=== PATIENT | male | born 1990 | race Asian ===

== ENCOUNTER → 2019-06-17 | Outpatient (CLI) | payer BC ==
[2019-06-17 08:18] LABS: SPERM MORPHOLOGY SENT TO REFERENC LAB
[2019-06-17 09:20] LABS: SPERM CONCENTRATION 56.7 X10^6/mL (>12.0); TOTAL SPERM COUNT 124.7 X10^6 (>33.0)
[2019-06-17 09:21] LABS: SPERM PROGRESSION 3
[2019-06-17 10:05] LABS: PERCENT VIABLE 88 %; SEMEN VIABILITY STAINED 25; SEMEN VIABILITY UNSTAINED 184; TOTAL VIABILITY COUNT 209
[2019-06-17 10:07] LABS: PERCENT NONMOTILE SPERM 67 %; SPERM VIABILITY 92 % (>58)
== END ==
LOC: LAB 08:03
PROVIDERS: ATTEND Obstetrics & Gynecology Gynecology
DX: N46.11 Organic oligospermia (principal)
CPT/HCPCS: 36415; 89320